=== PATIENT | female | born 1970 | race Two or more races ===

== ENCOUNTER 2018-07-19 08:50 | Outpatient (CLI) | payer OTHER | END 2018-07-19 08:56 | disposition home or self-care (01) | LOC: SONOGRAMA 08:50 | DX: E04.1 Nontoxic single thyroid nodule (principal) ==

== ENCOUNTER 2021-10-25 10:04 | Outpatient (CLI) | payer OTHER | END 2021-10-25 10:10 | disposition home or self-care (01) | LOC: SONOGRAMA 10:04 | PROVIDERS: ATTEND Pathology Anatomic Pathology & Clinical Pathology | DX: D34 Benign neoplasm of thyroid gland (principal); E04.8 Other specified nontoxic goiter ==

== ENCOUNTER 2021-10-25 11:40 | Outpatient (CLI) | payer OTHER | END 2021-10-25 11:45 | disposition home or self-care (01) | LOC: PPH VACUNA 11:40 | PROVIDERS: ATTEND Emergency Medicine Pediatric Emergency Medicine | DX: Z23 Encounter for immunization (principal) ==

== ENCOUNTER 2024-09-16 08:26 | Outpatient (CLI) | payer OTHER | END 2024-09-16 08:29 | disposition home or self-care (01) | LOC: SONOGRAMA 08:26 | PROVIDERS: ATTEND Pathology Anatomic Pathology | DX: D34 Benign neoplasm of thyroid gland (principal); E07.89 Other specified disorders of thyroid; E04.9 Nontoxic goiter, unspecified ==